=== PATIENT | female | born 1985 | race Caucasian/White ===

== ENCOUNTER 2019-02-03 22:37 | Emergency (ER) | payer MEDICAID ==
[~2019-02-03] VITALS: Ht 165.1 cm; Wt 113.7 kg
[2019-02-03 22:40] VITALS: BP 134/86
[2019-02-03] MEDS ORDERED: LORazepam 1MG TABLET ONE (23:04)
[2019-02-03 23:19] LABS: BASOPHILS % (AUTO) 0 % (0-1); EOSINOPHILS # (AUTO) 0.13 x10^3/uL (0-0.4); EOSINOPHILS % (AUTO) 2 % (1-7); LYMPHOCYTES # (AUTO) 2.78 x10^3/uL (1-3.4); LYMPHOCYTES % (AUTO) 42 % (22-44); MD NO; MEAN CORPUSCULAR HEMOGLOBIN 20.5 pg (27.0-34.8); MEAN CORPUSCULAR HGB CONC 31.4 g/dL (32.4-35.8); MEAN CORPUSCULAR VOLUME 65.4 fL (80-100); MEAN PLATELET VOLUME 8.6 fL (7.4-10.4); MONOCYTES # (AUTO) 0.39 x10^3/uL (0.2-0.8); MONOCYTES % (AUTO) 6 % (2-9); NEUTROPHILS # (AUTO) 3.29 x10^3/uL (1.8-6.8); NEUTROPHILS % (AUTO) 50 % (42-75); PLATELET COUNT 264 x10^3/uL (130-400); RED BLOOD COUNT 5.72 x10^6/uL (3.82-5.3); RED CELL DISTRIBUTION WIDTH 15.5 % (9.6-15.2)
--- NOTE | 2019-02-03 23:21 | NUR ---
PT STATES SHE "THINKS SHE HAS A PARASITE. STATES IT IS IN HER BLOOD, MESSING UP HER HEART AND HER BRAIN." PT HAS NUMEROUS SCARS ALL OVER BODY THAT APPEAR TO BE FROM PICKING. PT STATES "THEY ARE COMING OUT OF MY SKIN, SEE THIS SCAR, IT IS ACTIVE, IT IS BECAUSE THEY ARE IN MY BLOOD AND I'M JUST SCARED BECAUSE IT IS MESSING UP MY HEART AND MIND." PT PLACED ON CONT. SPO2, BP, AND CARDIAC MONTIOR, VSS. PT MEDICATED PER [facility].
[2019-02-03 23:29] LABS: ALBUMIN 3.6 g/dL (3.4-5.0); ANION GAP 4 mmol/L (5-15); CALCIUM 8.4 mg/dL (8.5-10.1); CHLORIDE 111 mmol/L (98-107); CREATININE 0.65 mg/dL (0.55-1.02)
[2019-02-03] MEDS ORDERED: LORazepam 1MG TABLET PO ONE (23:30)
[2019-02-03] MEDS ORDERED: ACETAMINOPHEN 500 MG TABLET PO ONE (23:55)
[2019-02-04] MEDS ORDERED: ACETAMINOPHEN 500 MG TABLET ONE
== END 2019-02-04 00:42 ==
LOC: ED 23:30
DX: F42.4 Excoriation (skin-picking) disorder (principal); F41.9 Anxiety disorder, unspecified; M79.10 Myalgia, unspecified site; R06.02 Shortness of breath; R07.9 Chest pain, unspecified; F31.9 Bipolar disorder, unspecified; Z90.89 Acquired absence of other organs; Z90.49 Acquired absence of other specified parts of digestive tract
CPT/HCPCS: 36415; 71045; 80048; 82040; 85025; 93005; 99284